=== PATIENT | male | born 1955 | race Caucasian/White ===

== ENCOUNTER 2024-12-18 06:39 | Emergency (ER) | payer MEDICARE ==
[2024-12-18 07:06] LABS: BASOPHILS ABSOLUTE AUTO 0.0 x10-3/uL (0.0-0.3); BASOPHILS PERCENT AUTO 0.4 % (0.3-3.8); EOSINOPHILS ABSOLUTE AUTO 0.1 x10-3/uL (0.0-0.6); EOSINOPHILS PERCENT AUTO 1.5 % (0.1-6.8); LYMPHOCYTES ABSOLUTE AUTO 1.2 x10-3/uL (0.5-4.5); LYMPHOCYTES PERCENT AUTO 12.2 % (15.8-45.3); MEAN PLATELET VOLUME 9.1 fL (6.7-11.0); MONOCYTES ABSOLUTE AUTO 0.6 x10-3/uL (0.0-1.2); MONOCYTES PERCENT AUTO 5.9 % (5.5-15.2); NEUTROPHILS ABSOLUTE AUTO 7.5 x10-3/uL (1.7-6.9); NEUTROPHILS PERCENT AUTO 80.0 % (40.3-71.8); PLATELET COUNT,PLT 200 x10(3)uL (117-477); RED BLOOD CELL COUNT 4.91 x10(6)uL (3.90-5.90); RED CELL DISTRIBUTION WIDTH 14.1 % (12.4-15.0); WHITE BLOOD CELL COUNT,WBC 9.4 x10-3/uL (3.2-10.1)
[2024-12-18 07:07] LABS: BLOOD UREA NITROGEN,BUN 13 mg/dL (7-18); CARBON DIOXIDE,CO2 24 mmol/L (21-32); CHLORIDE,CL 104 mmol/L (100-110); CREATININE 1.2 mg/dL (0.70-1.30); EST CRCL DRUG DOSING (CG) 56.21 mL/min; ESTIMATED GFR 65 mL/min (>60); GLUCOSE RANDOM 159 mg/dL (80-116); POTASSIUM,K 3.2 mmol/L (3.5-5.3); SODIUM,NA 141 mmol/L (135-145)
[2024-12-18] MEDS: HYDROmorphone 2 MG/ML SDV IVPUSH ONE ×3 (07:08→13:32)
[2024-12-18] MEDS: Ondansetron 4 MG/2 ML SDV IVPUSH ONE (07:09)
[2024-12-18 07:12] LABS: A/G RATIO 1.1; ALANINE AMINOTRANSFERASE,ALT 23 U/L (12-36); ASPARTATE AMNIOTRANSFERASE,AST 18 IU/L (5-25); BILIRUBIN TOTAL 0.6 mg/dL (0.1-1.3); PROTEIN TOTAL,TP 7.2 g/dL (6.0-8.0)
[2024-12-18] MEDS: Iopamidol 755 Mg/ML 100 ML Bottle IV SCH (07:42)
[2024-12-18] MEDS ORDERED: Naloxone 0.4 MG/ML SDV IVPUSH PRN (08:35)
[2024-12-18 09:03] LABS: GLUCOSE,URINE 50 mg/dL (NORMAL); OCCULT BLOOD,URINE NEGATIVE (NEGATIVE)
[2024-12-18 09:10] LABS: APPEARANCE,URINE CLEAR (CLEAR)
[2024-12-18 09:20] LABS: BASE EXCESS VENOUS,POC -3 mmol/L (-2 - 3+); PCO2 VENOUS,POC 43 mmHg (41-51); PH VENOUS,POC 7.33 pH Units (7.32-7.43)
[2024-12-18 10:38] LABS: LACTIC ACID 2.5 mmol/L (0.4-2.0)
[2024-12-18 14:12] LABS: MEAN PLATELET VOLUME 8.8 fL (6.7-11.0); PLATELET COUNT,PLT 227 x10(3)uL (117-477); RED BLOOD CELL COUNT 5.14 x10(6)uL (3.90-5.90); RED CELL DISTRIBUTION WIDTH 14.3 % (12.4-15.0); WHITE BLOOD CELL COUNT,WBC 14.2 x10-3/uL (3.2-10.1)
[2024-12-18 14:19] VITALS: BP 176/87; PULSE 85
[2024-12-18 14:22] LABS: BAND PERCENT MAN 1 % (0-6); EOSINOPHILS PERCENT MAN 1 % (0-5); LYMPHOCYTES PERCENT MAN 5 % (13-37); MONOCYTES PERCENT MAN 4 % (4-12); SEG NEUTROPHILS PERCENT MAN 89 % (46-82)
[2024-12-18] MEDS: VANCOmycin 2 GM/400 ML 2 GM in Premix Bag 1 BAG IV ONE (14:54)
[2024-12-18] MEDS: Potassium Chloride 20 MEQ in Premix Bag 1 BAG IV ONE (17:06)
[2024-12-18] MEDS: VANCOmycin 1 GM/200 ML 1 GM in Premix Bag 1 BAG IV ONE (17:14)
[2024-12-18] MEDS ORDERED: Saccharomyces Boulardii (Probiotic) 250 MG Cap PO SCH (21:00)
== END 2024-12-18 17:31 | disposition other institution (70) ==
LOC: FB.ED 06:39
DX: K81.9 Cholecystitis, unspecified (principal); Z91.030 Bee allergy status; Z79.899 Other long term (current) drug therapy
CPT/HCPCS: 36415; 71045; 74177; 76705; 80053; 81003; 83036; 83605; 83690; 85025; 85379; 86140; 87040; 93005; 96361; 96365; 96366; 96367; 96375; 96376; 99285; J1171; J2405; J2470; J2543; J3372; J3480; J7030; Q9967; 93010